=== PATIENT | male | born 1965 | race Asian ===

== ENCOUNTER 2020-11-12 04:31 | Day surgery (SDC) | payer OTHER ==
[2020-11-09 09:03] VITALS: BMI 29.9
[2020-11-12] MEDS ORDERED: PROPOFOL 20 ML ONE (14:06)
[2020-11-12] MEDS ORDERED: KETOROLAC TROMETHAMINE 30 MG/1 ML VIAL ONE (14:09)
[2020-11-12 15:27] VITALS: BP 135/90; PULSE 72; TEMP 97
== END 2020-11-12 15:26 | disposition home or self-care (01) ==
LOC: JASU-SURG 04:31
PROVIDERS: ATTEND Urology
PROC: 0TF4XZZ Fragmentation in Left Kidney Pelvis, External Approach (ICD-10-PCS; principal; 2020-11-12 12:30)
DX: N20.0 Calculus of kidney (principal); E11.9 Type 2 diabetes mellitus without complications; Z79.84 Long term (current) use of oral hypoglycemic drugs
CPT/HCPCS: 82962